=== PATIENT | female | born 1980 | race Two or more races ===

== ENCOUNTER 2017-03-20 09:32 | Emergency (ER) | payer OTHER ==
[~2017-03-20] VITALS: Ht 157.5 cm; Wt 92.7 kg
[~2017-03-20 09:32] MED LIST: ADVAIR 100/501 DISK IH; ALBUTEROL SULF8.5 GM IH; ALPRAZOLAM0.25 M2 PO; ATARAX,VISTARIL50 MG PO; ATIVAN1 MG PO; BACTRIM,SEPT1 TABLET PO; BENADRYL50 MG PO; BUSPAR15 MG PO; BUSPAR5 MG PO; CIPRO500 MG PO; CLARITIN,ALAVAR10 MG PO; FLONASE16 G1 BOTH NARES; GLIPIZIDE10 MG; GLIPIZIDE5 M1 PO; GLUCOPHAGE XR1000 MG; Glucophage PO; HUMULIN 70100 UNIT/1 SC; HYDROCODON-ACE1 EAC7 PO; HYDROCORTISONE30 G2 TP; KEFLEX500 MG PO; LISINOPRIL PO; LISINOPRIL2.5 MG PO; MACROBID100 MG PO; METFORMIN HCL1000 MG PO; MOBIC7.5 MG PO; MOTRIN600 MG PO; MUCINEX600 MG PO; Motrin PO; NOHOMEMEDS; NOVOLOG PE100 UNITS/ SC; NOVOLOG100 UNIT/3 SC; PREDNISONE50 MG PO; PRENATAL1 EACH PO; PROMETHAZINE HC25 M1 PO; PYRIDIUM100 MG PO; Percocet 5/325,Endoc PO; QUETIAPINE FUM100 MG PO; ROBITUSSIN NIG118 ML PO; SEROQUEL12.5 MG PO; SEROQUEL50 MG PO; SERTRALINE HCL100 MG PO; TRAZODONE HCL50 MG PO; ZANTAC150 MG PO; ZESTRIL,PRINIVIL5 MG; ZITHROMAX Z-PA250 MG PO; ZOFRAN ODT8 MG PO; ZOLOFT50 MG; [UNRECOGNIZED DRUG - REMARK]
[2017-03-20 10:30] LABS: EOSINOPHIL (%) 1.9 % (0-5); EOSINOPHIL COUNT 0.1 K/uL (0-0.3); HEMATOCRIT 41.4 % (36.0-46.0); IMMATURE GRANULOCYTE (%) 0.7 % (0.0-0.7); IMMATURE GRANULOCYTE COUNT 0.1 K/uL; INSTRUMENT ABS NEUTROPHIL CT 4.4 K/uL; LYMPHOCYTE COUNT 1.9 K/uL (1.0-2.8); MCH 29.7 PG (29.0-34.0); MCHC 34.5 G/DL (30.0-36.0); MCV 86.1 FL (83-99); MEAN PLAT.VOLUME 10.6 uM^3 (9.5-12.4); MONOCYTE (%) 4.7 % (3-12); MONOCYTE COUNT 0.3 K/uL (0-0.8); NEUTROPHIL (%) 64.9 % (45-76); NEUTROPHIL COUNT 4.4 K/uL (1.8-6.4); PLATELET COUNT 203 K/uL (156-360); RBC DIS.WIDTH-CV 12.1 % (11.8-14.6); RBC DIS.WIDTH-SD 38.2 % (39-53); RED BLOOD COUNT 4.81 M/uL (3.80-5.20); WHITE BLOOD COUNT 6.7 K/uL (4.1-10.2)
[2017-03-20 11:02] LABS: ADD MIUA? YES; BILIRUBIN NEGATIVE; BLOOD LARGE; COLOR YELLOW ((YELLOW)); GLUCOSE (STRIP) >=500; KETONES 5; LEUKOCYTES SMALL; NITRITE NEGATIVE; PROTEIN (STRIP) 30; SPECIFIC GRAVITY 1.024 (1.000-1.030); UROBILINOGEN 0.2 MG/DL (0.2-1.0)
[2017-03-20 11:07] LABS: BACTERIA NONE SEEN /HPF; EPITHELIAL CELLS 1+ /HPF; MUCUS TRACE /LPF; RED BLOOD CELLS TNTC /HPF (0-5)
[2017-03-20 11:37] VITALS: BP 142/93
== END 2017-03-20 11:38 | disposition home or self-care (01) ==
LOC: EME 09:32
PROVIDERS: Physician Assistant
DX: N93.9 Abnormal uterine and vaginal bleeding, unspecified (principal); J45.909 Unspecified asthma, uncomplicated; E11.9 Type 2 diabetes mellitus without complications; Z79.84 Long term (current) use of oral hypoglycemic drugs; F17.200 Nicotine dependence, unspecified, uncomplicated
CPT/HCPCS: 81003; 84702; 85025; 86900; 86901; 99281; 99283

== ENCOUNTER 2017-03-25 15:22 | Emergency (ER) | payer OTHER ==
[~2017-03-25] VITALS: Ht 157.5 cm; Wt 92.9 kg
[2017-03-25] MEDS ORDERED: ZITHROMAX250 MG PO (18:15)
[2017-03-25] MEDS ORDERED: PREDNISONE20 MG PO (18:15)
[2017-03-25] MEDS ORDERED: VENTOLIN HFA18 GM IH (18:16)
[2017-03-25] MEDS ORDERED: PROVENTIL,2.5 MG/3 M IH (18:16)
[2017-03-25 18:40] VITALS: BP 153/89
== END 2017-03-25 18:43 | disposition home or self-care (01) ==
LOC: EME 15:22
DX: J20.9 Acute bronchitis, unspecified (principal); J45.909 Unspecified asthma, uncomplicated; R06.00 Dyspnea, unspecified; E11.9 Type 2 diabetes mellitus without complications; F39 Unspecified mood [affective] disorder; F40.10 Social phobia, unspecified; F32.9 Major depressive disorder, single episode, unspecified; Z72.0 Tobacco use; Z90.49 Acquired absence of other specified parts of digestive tract
CPT/HCPCS: 94640; 99281; 99284; J7512